=== PATIENT | male | born 1990 | race Caucasian/White ===

== ENCOUNTER 2019-11-22 14:39 | Emergency (ER) | payer OTHER, MEDICAID ==
[2019-11-22] MEDS ORDERED: Sodium Chloride 0.9% 10 ML Syringe FLUSH PRN (14:55)
[2019-11-22] MEDS ORDERED: Sodium Chloride 0.9% 1,000 ML IV ONE (14:56)
[2019-11-22] MEDS ORDERED: Ondansetron 4 MG/2 ML SDV IVPUSH ONE (14:56)
[2019-11-22 15:54] LABS: CHLORIDE,CL 103 mmol/L (98-107); SODIUM,NA 142 mmol/L (136-145)
[2019-11-22 15:55] LABS: ANION GAP 14.2 mmol/L (10-20)
--- NOTE | 2019-11-22 15:55 | CR ---
[id number] RAD/RAD Chest PA or AP 1V EXAM: RAD Chest PA or AP 1V INDICATION: CARBON MONOXIDE EXPOSURE, COUGH. COMPARISON: 2008. DISCUSSION: Motion artifact degrades imaging. Findings are within this limitation. Cardiomegaly. Low lung volumes. No evidence of pneumonia. No pneumothorax or other acute findings. IMPRESSION: As above. Magnus Harper MD 11/22/19 [id number] Thank you for allowing us to participate in the care of your patient.
--- NOTE | 2019-11-23 05:22 | EDM.PDOC ---
ED HPI GENERAL MEDICAL PROBLEM - General Chief Complaint: Respiratory Problem Stated Complaint: SOB Time Seen by Provider: 11/22/19 14:39 Source of Information: Reports: Patient History Limitations: Reports: No Limitations - History of Present Illness INITIAL COMMENTS - FREE TEXT/NARRATIVE: Pt. presents to ER with complaints of carbon monoxide exposure. Pt. states that he was using a gas powered pan washer hand in an enclosed area. He states that he used it for about an hour. He states that he developed headache, nausea, and vomiting. No syncope. No chest pain or shortness of breath. Pt. denies any past medical history such as CAD, diabetes, or respiratory illnesses. He states that he has vomited around 5 times. He states that he was exposed to the carbon monoxide at around 0900 and he was still symptomatic on arrival to ER. Nursing staff checked the patient's non-invasive CO level on arrival to ER and it was 21. Family states that the patient has not been confused and has been acting appropriately. He recalls all events of the day. He does complain of fatigue and generally does not feel well. Onset Date: 11/22/19 Location: Reports: Generalized Associated Symptoms: Reports: Malaise, Nausea/Vomiting. Denies: Confusion, Chest Pain, Cough, Diaphoresis, Seizure, Shortness of Breath, Syncope, Weakness - Related Data Allergies Allergy/AdvReac Type Severity Reaction Status Date / Time No Known Drug Allergies Allergy Other Verified 11/22/19 14:57 Home Meds: Home Meds . [No Known Home Meds] 11/22/19 [History] Past Medical History - Past Health History Medical/Surgical History: Denies Medical/Surgical History Respiratory History: Reports: Sleep Apnea Gastrointestinal History: Reports: GERD Social & Family History - Tobacco Use Smoking Status *Q: Unknown Ever Smoked ED ROS GENERAL - Review of Systems Review Of Systems: See Below Constitutional: Reports: No Symptoms, Malaise, Fatigue HEENT: Reports: No Symptoms Respiratory: Reports: No Symptoms Cardiovascular: Reports: Lightheadedness Endocrine: Reports: No Symptoms GI/Abdominal: Reports: Nausea, Vomiting : Reports: No Symptoms Musculoskeletal: Reports: No Symptoms Skin: Reports: No Symptoms Neurological: Reports: No Symptoms, Dizziness, Headache. Denies: Confusion, Seizure, Syncope, Trouble Speaking, Difficulty Walking, Weakness, Change in Speech, Gait Disturbance Psychiatric: Reports: No Symptoms Hematologic/Lymphatic: Reports: No Symptoms Immunologic: Reports: No Symptoms ED EXAM, GENERAL - Physical Exam Exam: See Below Exam Limited By: No Limitations General Appearance: Alert, WD/WN, No Apparent Distress Eye Exam: Bilateral Eye: EOMI, Normal Fundi, Normal Inspection, PERRL Nose: Normal Inspection, Normal Mucosa, No Blood Throat/Mouth: Normal Inspection, Normal Lips, Normal Teeth, Normal Gums, Normal Oropharynx, Normal Voice, No Airway Compromise Head: Atraumatic, Normocephalic Neck: Normal Inspection, Supple, Non-Tender, Full Range of Motion Respiratory/Chest: No Respiratory Distress, Lungs Clear, Normal Breath Sounds, No Accessory Muscle Use, Chest Non-Tender Cardiovascular: Normal Peripheral Pulses, Regular Rate, Rhythm, No Edema, No Gallop, No JVD, No Murmur, No Rub Peripheral Pulses: 4+: Radial (L) GI/Abdominal: Normal Bowel Sounds, Soft, Non-Tender, No Organomegaly, No Distention, No Abnormal Bruit, No Mass (Male) Exam: Deferred Rectal (Males) Exam: Deferred Back Exam: Normal Inspection, Full Range of Motion, NT Extremities: Normal Inspection, Normal Range of Motion, Non-Tender, Normal Capillary Refill, No Pedal Edema Neurological: Alert, Oriented, CN II-XII Intact, Normal Cognition, Normal Gait, Normal Reflexes, No Motor/Sensory Deficits Psychiatric: Normal Affect, Normal Mood Skin Exam: Warm, Dry, Intact, Normal Color, No Rash Lymphatic: No Adenopathy EKG INTERPRETATION Rhythm: NSR [place]: Normal P-Wave: Present QRS: Normal ST-T: Normal QT: Normal Course - Vital Signs Last Recorded V/S: Last Vital Signs Temp 35.6 C 11/22/19 14:40 Pulse 113 H 11/22/19 14:40 Resp 20 11/22/19 14:40 BP 155/90 H 11/22/19 14:40 Pulse Ox 100 11/22/19 14:45 - Orders/Labs/Meds Orders: Active Orders 24 hr Category Date Time Status EKG Documentation Completion [RC] STAT Care 11/22/19 14:56 Active Peripheral IV Insertion Adult [OM.PC] Routine Oth 11/22/19 14:56 Ordered Labs: Laboratory Tests 11/22/19 11/22/19 11/22/19 Range/Units 15:21 15:21 15:21 WBC 11.8 H (4.0-10.0) x10^3/uL RBC 5.06 (4.5-6.0) x10^6/uL Hgb 14.3 (14.0-18.0) g/dL Hct 40.9 (40.0-52.0) % MCV 80.8 (78.0-93.0) fL MCH 28.3 (26.0-32.0) pg MCHC 35.0 (32.0-36.0) g/dL RDW Coeff of Robert 13.4 (10.0-15.0) % Plt Count 279 (130-400) x10^3/uL Neut % (Auto) 86.3 H (50.0-80.0) % Lymph % (Auto) 9.4 L (25.0-50.0) % [place] % (Auto) 3.9 (2.0-11.0) % Eos % (Auto) 0.1 (0.0-4.0) % Baso % (Auto) 0.3 (0.2-1.2) % PT 10.1 (10.0-12.8) SEC INR 0.9 L (2.0-3.5) POC ABG pH (7.35-7.45) POC ABG pCO2 (35-45) mmHG POC ABG pO2 (80-105) mmHG POC ABG HCO3 (22-26) mmol/L POC ABG Total CO2 (23-27) mmol/L POC ABG O2 Sat (95-98) % POC ABG Base Excess (-2-3) mmol/L POC FiO2 Sodium 142 (136-145) mmol/L Potassium 4.2 (3.5-5.1) mmol/L Chloride 103 (98-107) mmol/L Carbon Dioxide 29 (21-32) mmol/L Anion Gap 14.2 (10-20) mmol/L BUN 11 (7-18) mg/dL Creatinine 0.9 (0.70-1.30) mg/dL Est Cr Clr Drug Dosing TNP Estimated GFR (MDRD) > 60 Glucose 128 H (74-106) mg/dL Calcium 8.6 (8.5-10.1) mg/dL Corrected Calcium 8.76 (8.5-10.1) mg/dL Phosphorus 3.1 (2.6-4.7) mg/dL Magnesium 1.8 (1.8-2.4) mg/dL Total Bilirubin 0.6 (0.2-1.0) mg/dL AST 25 (15-37) U/L ALT 56 (16-63) U/L Alkaline Phosphatase 81 (46-116) U/L Troponin I < 0.017 (<=0.056) ng/mL Total Protein 7.7 (6.4-8.2) g/dL Albumin 3.8 (3.4-5.0) g/dL Globulin 3.9 Albumin/Globulin Ratio 0.97 01/30/20 Range/Units 15:32 WBC (4.0-10.0) x10^3/uL RBC (4.5-6.0) x10^6/uL Hgb (14.0-18.0) g/dL Hct (40.0-52.0) % MCV (78.0-93.0) fL MCH (26.0-32.0) pg MCHC (32.0-36.0) g/dL RDW Coeff of Robert (10.0-15.0) % Plt Count (130-400) x10^3/uL Neut % (Auto) (50.0-80.0) % Lymph % (Auto) (25.0-50.0) % [place] % (Auto) (2.0-11.0) % Eos % (Auto) (0.0-4.0) % Baso % (Auto) (0.2-1.2) % PT (10.0-12.8) SEC INR (2.0-3.5) POC ABG pH 7.403 (7.35-7.45) POC ABG pCO2 43 (35-45) mmHG POC ABG pO2 84 (80-105) mmHG POC ABG HCO3 27 H (22-26) mmol/L POC ABG Total CO2 28 H (23-27) mmol/L POC ABG O2 Sat 96 (95-98) % POC ABG Base Excess 2 (-2-3) mmol/L POC FiO2 0.50 Sodium (136-145) mmol/L Potassium (3.5-5.1) mmol/L Chloride (98-107) mmol/L Carbon Dioxide (21-32) mmol/L Anion Gap (10-20) mmol/L BUN (7-18) mg/dL Creatinine (0.70-1.30) mg/dL Est Cr Clr Drug Dosing Estimated GFR (MDRD) Glucose (74-106) mg/dL Calcium (8.5-10.1) mg/dL Corrected Calcium (8.5-10.1) mg/dL Phosphorus (2.6-4.7) mg/dL Magnesium (1.8-2.4) mg/dL Total Bilirubin (0.2-1.0) mg/dL AST (15-37) U/L ALT (16-63) U/L Alkaline Phosphatase (46-116) U/L Troponin I (<=0.056) ng/mL Total Protein (6.4-8.2) g/dL Albumin (3.4-5.0) g/dL Globulin Albumin/Globulin Ratio Meds: Medications Discontinued Medications Generic Name Dose Route Start Last Admin Trade Name Freq PRN Reason Stop Dose Admin Sodium Chloride 1,000 mls @ 1,000 mls/hr 11/22/19 14:56 11/22/19 15:19 Normal Saline IV 11/22/19 15:55 1,000 mls/hr .BOLUS ONE Administration Ondansetron HCl 4 mg 11/22/19 14:56 11/22/19 15:20 Zofran IVPUSH 11/22/19 14:57 4 mg ONETIME ONE Administration Sodium Chloride 10 ml 11/22/19 14:55 Saline Flush FLUSH ASDIRECTED PRN Keep Vein Open - Radiology Interpretation Free Text/Narrative:: chest xray negative for acute pathology. Departure - Departure Time of Disposition: 16:55 Disposition: Home, Self-Care 01 Clinical Impression: Carbon monoxide exposure - Discharge Information Instructions: Carbon Monoxide Poisoning, [id number] Referrals: PCP,None [Primary Care Provider] - Forms: ED Department Discharge Additional Instructions: Home to rest. Off work tomorrow. Get plenty of sleep tonight. Return to ER if you have any chest pain, shortness of breath, racing heart, or other worrisome signs/symptoms. Recheck in clinic in 1 week. Sepsis Event Note - Evaluation Sepsis Screening Result: No Definite Risk - My Orders Last 24 Hours: My Active Orders 11/22/19 14:56 EKG Documentation Completion [RC] STAT Peripheral IV Insertion Adult [OM.PC] Routine - Assessment/Plan Last 24 Hours: My Active Orders 11/22/19 14:56 EKG Documentation Completion [RC] STAT Peripheral IV Insertion Adult [OM.PC] Routine Plan: Pt. was placed on high flow O2 at 15 L/min. IV access established and he was given normal saline and zofran. Poison control was contacted and advised that he did not need hyperbaric treatment as he was not having signs of end organ damage (syncope, neuro symptoms, or chest pain). Pt was kept on high-flow O2 for over 2 hours. At time of discharge, CO level was down to 7 from 21. He reported feeling much improved. Pt. is to follow-up in clinic in 5-7 days, sooner if chest pain, shortness of breath, or other worrisome signs/symptoms.
== END 2019-11-22 16:55 | disposition home or self-care (01) ==
LOC: VM.ED 14:39
DX: Z77.29 Contact with and (suspected) exposure to other hazardous substances (principal)
CPT/HCPCS: 36415; 36600; 71045; 80053; 82803; 83735; 84100; 84484; 85025; 85610; 93005; 96361; 96374; 99284-25; J2405; J7030

== ENCOUNTER 2024-12-21 02:00 | Emergency (ER) | payer BC, MEDICAID, OTHER ==
[2024-12-21] MEDS: predniSONE 20 MG Tab PO ONE (02:28)
== END 2024-12-21 02:36 | disposition home or self-care (01) ==
LOC: VM.ED 02:00
DX: J32.1 Chronic frontal sinusitis (principal); K21.9 Gastro-esophageal reflux disease without esophagitis; Z79.899 Other long term (current) drug therapy
CPT/HCPCS: 99283; J7512